=== PATIENT | female | born 1980 | race Caucasian/White ===

== ENCOUNTER 2023-03-13 09:49 | Outpatient (CLI) | payer MEDICAID, SELFPAY ==
--- NOTE | 2023-03-13 10:15 | CRLHL7_ITS ---
For Patients: As a result of the Century Cures Act, medical imaging exams and procedure reports are released immediately into your electronic medical record. You may view this report before your referring provider. If you have questions, please contact your health care provider. INDICATION : Heterogeneous circumscribed palpable mass in the midline of the lower neck beneath the thyroid TECHNIQUE : Ultrasound-guided fine needle aspiration of thyroid nodule. Comparison : CT 03/05/2023 FINDINGS : PROCEDURE: After the informed consent and time-out, multiple fine needle aspirations were obtained from the thyroid nodule. Fine needle performed. 25 gauge needles were used. Lidocaine was used for local anesthesia. The preliminary cytology was adequate for interpretation. Real-time imaging was used for guidance and needle placement. Post imaging ultrasound demonstrates no immediate complication. IMPRESSION : Successful fine needle aspiration of solid circumscribed heterogeneous mass in the midline of the lower neck. Dictated by Quincy Dee MD @ 03/13/2023 11:05:26 AM (Electronically Signed)
== END 2023-03-13 09:50 | disposition home or self-care (01) ==
PROVIDERS: PCP Family Medicine; Visit Provider Student in an Organized Health Care Education/Training Program
DX: E07.89 Other specified disorders of thyroid (principal)
CPT/HCPCS: 10005; 88173

== ENCOUNTER 2025-06-13 10:08 | Outpatient (CLI) | payer OTHER, SELFPAY | END 2025-06-13 10:09 | disposition home or self-care (01) | LOC: NFLDREF 06-17 07:46 | PROVIDERS: PCP Family Medicine; Referring Provider Family Medicine; Visit Provider Family Medicine | DX: N39.0 Urinary tract infection, site not specified (principal) | CPT/HCPCS: 87086 ==